=== PATIENT | female | born 1950 | race African-American/Black ===

== ENCOUNTER 2024-09-03 18:59 | Emergency (ER) | payer OTHER ==
[~2024-09-03] VITALS: Ht 167.6 cm; Wt 85.9 kg
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
[2024-09-04] MEDS ORDERED: CYCL-837 PO (00:41)
[2024-09-04] MEDS: MORPHINE SULFATE 4 MG/ML SYR/VIAL IM ONE (04:03)
[2024-09-04 05:00] VITALS: BP 148/88; PULSE 87; RESP 16; TEMP 98; O2SAT 99
== END 2024-09-04 05:00 | disposition home or self-care (01) ==
LOC: EDBD 18:59 → ER 18:59
DX: S16.1XXA Strain of muscle, fascia and tendon at neck level, initial encounter (principal); S39.012A Strain of muscle, fascia and tendon of lower back, initial encounter; V89.2XXA Person injured in unspecified motor-vehicle accident, traffic, initial encounter; Y93.89 Activity, other specified; Y92.488 Other paved roadways as the place of occurrence of the external cause; Y99.8 Other external cause status
CPT/HCPCS: 70450; 71250; 72125; 74176